=== PATIENT | female | born 1940 | race Asian ===

== ENCOUNTER 2016-06-07 05:32 | Inpatient (IN) | payer MEDICARE, OTHER ==
[~2016-06-07] VITALS: Ht 160 cm; Wt 63.5 kg
[2016-06-07] VITALS (33 sets, daily range): BP systolic 128–222; BP diastolic 65–191; PULSE 52–106; RESP 11–29; Ht 160 cm; Wt 63.5 kg
[2016-06-07] MEDS ORDERED: CEFAZOLIN 1 GM INJ ONE (07:00)
[2016-06-07] MEDS ORDERED: LIDOCAINE 1%/EPI 30 ML INJ ONE (07:03)
[2016-06-07] MEDS ORDERED: ATOR10TA65 PO (07:06)
[2016-06-07] MEDS ORDERED: FENTAnyl 50 MCG/ML VIAL ONE (07:50)
[2016-06-07] MEDS ORDERED: LIDOCAINE 2% (SDV) 5 ML INJ ONE (07:50)
[2016-06-07] MEDS ORDERED: PROPOFOL 20 ML ONE (07:50)
[2016-06-07] MEDS ORDERED: ROCURONIUM 50 MG INJ ONE (07:50)
[2016-06-07] MEDS ORDERED: SUCCINYLCHOLINE CHLORIDE 100 MG/5 ML SYG IV ONE (07:50)
[2016-06-07] MEDS ORDERED: morphine SULFATE/PF (10 MG/10 ML) INJ ONE (07:51)
[2016-06-07] MEDS ORDERED: DEXAMETHASONE 4 MG/ML 1 ML INJ ONE (08:24)
[2016-06-07] MEDS ORDERED: DIPHENHYDRAMINE 50 MG INJ IV PRN (08:30)
[2016-06-07] MEDS ORDERED: MEPERIDINE 25 MG INJ IV PRN (08:30)
[2016-06-07] MEDS ORDERED: HYDROmorphONE (0.2 MG/ML) 10ML SYG IV PRN ×3 (08:30)
[2016-06-07] MEDS ORDERED: METOCLOPRAMIDE 10 MG INJ IV PRN (08:30)
[2016-06-07] MEDS ORDERED: ONDANSETRON 4 MG INJ IV PRN (08:30)
[2016-06-07] MEDS ORDERED: FENTAnyl 50 MCG/ML VIAL IV PRN (08:30)
[2016-06-07] MEDS ORDERED: LACTATED RINGER'S 1,000 ML IV* SCH (09:00)
[2016-06-07] MEDS: CLINDAMYCIN 2% 40 GM VAG CR VAG SCH ×2 (10:00→10:13)
[2016-06-07] MEDS ORDERED: HYDROCODONE/APAP (5/325) TAB PO PRN (11:00)
[2016-06-07] MEDS: LACTATED RINGER'S 1,000 ML IV SCH (18:06)
[2016-06-07] MEDS: ACETAMINOPHEN 325 MG TAB PO PRN ×2 (18:13→21:49)
[2016-06-07] MEDS ORDERED: BENZOCAINE 20% 56 ML SPRAY TOP PRN (19:00)
[2016-06-07] MEDS ORDERED: WITCH HAZEL/GLYCERIN PAD PR PRN (19:00)
[2016-06-07 20:26] LABS: ADD UMIC YES; URINE BILIRUBIN (Dip) NEGATIVE (NEGATIVE); URINE BLOOD (Dip) 1+ (NEGATIVE); URINE COLOR LT. YELLOW (YELLOW); URINE GLUCOSE (Dip) NEGATIVE (NEGATIVE); URINE KETONES (Dip) NEGATIVE (NEGATIVE); URINE LEUKOCYTE ESTERASE (Dip) NEGATIVE (NEGATIVE); URINE NITRITE (Dip) NEGATIVE (NEGATIVE); URINE TOTAL PROTEIN (Dip) NEGATIVE (NEGATIVE); URINE UROBILINOGEN (Dip) 0.2 E.U./dL (0.1-1.0)
[2016-06-07] MEDS ORDERED: ZOLPIDEM 5 MG TAB PO PRN (21:00)
[2016-06-07 21:14] LABS: BACTERIA,URINE MODERATE; SQUAMOUS EPITHELIAL CELL,UR FEW
--- NOTE | 2016-06-07 22:29 | OPR ---
DATE OF OPERATION: 06/07/2016 PREOPERATIVE DIAGNOSIS: Uterine fibroid with uterine prolapse and cystocele and rectocele. POSTOPERATIVE DIAGNOSIS: Uterine fibroid with uterine prolapse and cystocele and rectocele. NAME OF OPERATION: Vaginal hysterectomy, suspension of vaginal vault and anterior and posterior col porrhaphy. ANESTHESIA: Epidural for postoperative pain management and general. ANESTHESIOLOGIST: All Us MD SURGEON: Inderjit Duran MD DRIER AND EVAPORATOR OPERATOR: Ron Reinoso MD ESTIMATED BLOOD LOSS: Approximately 100 mL PROCEDURE: After induction of epidural and general anesthesia, the patient was placed in dorsal lit hotomy position. Abdominal wall and perineal area were prepped and draped in usual aseptic manner. A Lyle catheter was introduced into the bladder under sterile condition, and tube was drained, abdalla d on top of the abdomen and the weighted speculum introduced into the vagina. There was prolapse of uterus of second degree, and the cervix was grasped with Edda forceps, and the vaginal mucosa was incised circular fashion below the cervical vaginal fold, and then circular incision was made and an terior vaginal wall from the cervix, and posterior vaginal wall was from the cer vix at the same time. Then posteriorly, the posterior vaginal wall was undermined, and the posterio r peritoneal reflection was visualized. This was grasped with Ema forceps and opened, and the john Saenz retractor was introduced into the posterior cul-de-sac. Anteriorly, further dissection of the anterior vaginal mucosa, it was noted that cervix is elongated. At this point, uterosacral ligament on the right side was clamped and cut, ligated with #1 chromic catgut, and suture was left long for the next procedure. Same procedure was done on the left side. Uterosacral ligament was cl amped and cut and transfixed with #1 chromic catgut, and suture was left long. Further pursuit of t he anterior reflection, which was difficult due to the elongated cervix, and the cardinal ligament w as clamped and cut, ligated with #1 chromic catgut, and suture was cut on each side, and the uterine vessel was clamped and cut, ligated with #1 chromic catgut on each side. Was able to reach the ant erior reflection, which was opened, and the retractor was introduced. The round ligament and part o f uterine vessel on each side was clamped and cut, ligated with #1 chromic catgut. The fundus was r eached, and the utero-ovarian ligament and fallopian tube proximal portion was clamped and cut and d oubly ligated with #1 chromic catgut, and suture left long for further procedure on each side. With a free needle, the pedicle was brought out to the lateral aspect of vaginal vault, and the suture o n the cardinal ligament was brought out to the right aspect of the vaginal vault, and suture was tie d, and the vaginal vault was suspended on the right side. The same procedure was done on the left s apolonia. No bleeder was noted. The anterior vaginal wall was undermined after the injection of Xylocai ne with epinephrine, and hydrodissection was obtained and the midline incision was made, and the und erlying bladder was separate from the anterior vaginal wall, and #1 Vicryl in interrupted suture was placed on the uterovesical angle, 2 of them, and after that the bladder was reduced by using purses tring suture with 2-0 Vicryl. Good reduction of the cystocele was obtained, and the redundant anter ior vaginal mucosa was resected. This was approximated with 2-0 Vicryl in continuous manner. After this, anterior colporrhaphy done, and the rest of the vaginal vault was closed using 0 Vicryl in co ntinuous manner starting from the right aspect of the vaginal vault, and no bleeder was noted. Afte r the anterior colporrhaphy was done, posteriorly it was noticed that a very loose posterior fourche tte, not noticeable rectocele noted. The inverted triangle incision was made on the perineum, and t he perineal skin was removed, and posterior vaginal mucosa was undermined by using Metzenbaum scisso rs in the middle after the hydrodissection with Xylocaine with epinephrine. After the dissection of the posterior vaginal mucosa, the levator ani muscle was brought closed, approximated with #0 Vicry l in the [id number] suture. The posterior vaginal mucosa was closed with 0 chromic catgut in c ontinuous manner, stub at the vaginal orifice, and suture was left long, and rest of the bulbocavern osus muscle was approximated with 2-0 chromic catgut in continuous manner, and this was continued wi th subcuticular suture using same suture in subcuticular manner to approximate the perineal skin and which was tied up at the orifice. No bleeder was noted. Cleocin 2% cream was used for soaking the vaginal packing which was inserted into the vaginal cavity. The bladder was drained during the arnaldo james with approximately 200 mL of urine, clear. Procedure was completed. Estimated blood loss only approximately 100 mL. The patient withstood procedure, was sent to recovery room in stable conditi on. Dictated By: INDERJIT COLEMAN/OLGA Conf#: [id number] DID#: [id number]
[2016-06-08 00:30] VITALS: BP 131/69; RESP 18
[2016-06-08] MEDS: LACTATED RINGER'S 1,000 ML IV SCH ×3 (05:55→14:17)
[2016-06-08 06:08] VITALS: BP 145/71; PULSE 69; RESP 18
[2016-06-08 06:09] LABS: ADD SCAN DIFF NO
[2016-06-08 06:38] LABS: BASOPHILS % 0.4 % (0.0-2.0); EOSINOPHILS % 0.2 % (0.0-7.0); HEMOGLOBIN 11.8 g/dl (12.0-16.0); LYMPHOCYTES # 1.9 10^3/ul (0.8-2.9); LYMPHOCYTES % 16.4 % (15.0-51.0); MEAN CORPUSCULAR HEMOGLOBIN 30.6 pg (29.0-33.0); MEAN CORPUSCULAR HGB CONC 32.8 g/dl (32.0-37.0); MEAN CORPUSCULAR VOLUME 93.3 fl (82.0-101.0); MEAN PLATELET VOLUME 9.2 fl (7.4-10.4); MONOCYTE # 0.8 10^3/ul (0.3-0.9); MONOCYTES % 7.2 % (0.0-11.0); NEUTROPHIL # 8.5 10^3/ul (1.6-7.5); NEUTROPHILS % 75.4 % (39.0-77.0); PLATELET COUNT 217 10^3/UL (140-415); RED BLOOD COUNT 3.86 10^6/ul (4.20-5.40); RED CELL DISTRIBUTION WIDTH 12.6 % (11.5-14.5); WHITE BLOOD COUNT 11.3 10^3/ul (4.8-10.8)
[2016-06-08 08:30] VITALS: BP 164/76; RESP 18
--- NOTE | 2016-06-08 13:02 | PN ---
Date/Time of Note Date/Time of Note DATE: 06/08/16 TIME: 13:00 Assessment/Plan Lines/Catheters IV Catheter Type (from Nrsg): Peripheral IV Lyle in Place (from Nrsg): Yes Subjective 24 Hr Interval Summary s c/o constipation surgical pain o vss afebrile abdomen soft no significant vaginal bleeding a stable vh and a/p repair p as ordered Exam/Review of Systems Vital Signs Vitals Vital Signs Date Time Temp Pulse Resp B/P Pulse Ox O2 Delivery O2 Flow Rate FiO2 06/08/16 08:30 98.3 77 18 164/76 98 06/08/16 06:08 Room Air 06/07/16 10:30 6.0 Intake and Output 06/07/16 06/07/16 06/08/16 15:00 23:00 07:00 Intake Total 1000 ml 400 ml 1600 ml Output Total 500 ml 2000 ml 1000 ml Balance 500 ml -1600 ml 600 ml Results Result Diagram: 06/08/16 0505 JAMESON PARKS MD Jun 08, 2016 13:02
[2016-06-08] MEDS: IBUPROFEN 600 MG TAB PO SCH ×2 (13:18→17:55)
[2016-06-08] MEDS: POLYETHYLENE GLYCOL 17 GM PACKET PO SCH (13:18)
[2016-06-08] MEDS: ONDANSETRON 4 MG INJ IV PRN (14:17)
[2016-06-08 20:01] VITALS: BP 135/73; RESP 18
[2016-06-08 23:58] VITALS: BP 131/70; RESP 19
[2016-06-09] MEDS: IBUPROFEN 600 MG TAB PO SCH ×5 (00:07→23:15)
[2016-06-09] MEDS: LACTATED RINGER'S 1,000 ML IV SCH ×3 (01:39→20:00)
[2016-06-09 07:44] VITALS: BP 128/72; RESP 19
[2016-06-09] MEDS: POLYETHYLENE GLYCOL 17 GM PACKET PO SCH (08:25)
[2016-06-09 09:51] LABS: ADD UMIC YES; URINE BILIRUBIN (Dip) NEGATIVE (NEGATIVE); URINE BLOOD (Dip) 1+ (NEGATIVE); URINE COLOR LT. YELLOW (YELLOW); URINE GLUCOSE (Dip) NEGATIVE (NEGATIVE); URINE KETONES (Dip) NEGATIVE (NEGATIVE); URINE LEUKOCYTE ESTERASE (Dip) NEGATIVE (NEGATIVE); URINE NITRITE (Dip) NEGATIVE (NEGATIVE); URINE TOTAL PROTEIN (Dip) NEGATIVE (NEGATIVE); URINE UROBILINOGEN (Dip) 0.2 E.U./dL (0.1-1.0)
[2016-06-09 10:14] LABS: BACTERIA,URINE FEW
[2016-06-09] MEDS: ONDANSETRON 4 MG INJ IV PRN (17:56)
[2016-06-09 20:09] VITALS: BP 137/69; RESP 20
[2016-06-10] MEDS: LACTATED RINGER'S 1,000 ML IV SCH (05:39)
[2016-06-10] MEDS: IBUPROFEN 600 MG TAB PO SCH ×2 (05:39→13:02)
[2016-06-10 08:04] VITALS: BP 128/65; RESP 18
[2016-06-10] MEDS: POLYETHYLENE GLYCOL 17 GM PACKET PO SCH (09:06)
--- NOTE | 2016-06-10 10:34 | PD.PPDC ---
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
--- NOTE | 2016-06-10 10:42 | DS ---
Date/Time of Note Date/Time of Note DATE: 06/10/16 TIME: 10:35 Discharge Summary Admission/Discharge Info Admit Date/Time Jun 07, 2016 at 05:32 Discharge Date/Time jun 10 Final Diagnosis uterine fibroids uterine prolapse and cystocele and rectocele Patient Condition: Stable Procedures vaginal hysterectomy and vault suspension ant and post colporrhaphy Hx of Present Illness 76 y.o has been suffering from lower abdominal pressure sensation which has been gradually worsen for the last few yrs andlately something was protruding out from vagina heree for surgical intervention Hospital Course tolerating diet well had b.m urination well vss discharge to residential fascity sine no one is available at home Home Meds Reported Medications Atorvastatin Calcium (Atorvastatin Calcium) 10 Mg Tablet, 10 MG PO QHS, #30 TAB 06/07/16 Follow-up Plan 8weeks at office JAMESON PARKS MD Jun 10, 2016 10:42
--- NOTE | 2016-06-10 10:48 | HP ---
Date/Time of Note Date/Time of Note DATE: 06/10/16 TIME: 10:43 Assessment/Plan VTE Prophylaxis VTE Prophylaxis Intervention: anti-embolic stocking Lines/Catheters IV Catheter Type (from Nrsg): Peripheral IV Urinary Cath still in place: No Assessment/Plan Chief Complaint/Hosp Course tolerating diet well had b.m urination well vss discharge to residential [facility] sine no one is available at home Problems: Assessment/Plan vaginal hysterectomy and vault suspension ant and post colporrhaphy HPI/ROS Admit Date/Time Admit Date/Time Jun 07, 2016 at 05:32 Hx of Present Illness 76 y.o has been suffering from lower abdominal pressure sensation which has been gradually worsen for the last few yrs andlately something was protruding out from vagina heree for surgical intervention ROS Gastrointestinal: pain (lower abdominal pain) Musculoskeletal: back pain PMH/Family/Social Past Medical History Medical History: no pertinent history, high cholesterol Past Surgical History Past Surgical Hx: no surgical history Family History Significant Family History: no pertinent family hx Social History Alcohol Use: none Smoking Status: Never smoker Drug Use: none Exam/Review of Systems Vital Signs Vitals Vital Signs Date Time Temp Pulse Resp B/P Pulse Ox O2 Delivery O2 Flow Rate FiO2 06/10/16 08:04 97.9 72 18 128/65 96 06/08/16 06:08 Room Air 06/07/16 10:30 6.0 Intake and Output 06/09/16 06/09/16 06/10/16 15:00 23:00 07:00 Intake Total 1700 ml 1400 ml Output Total 1000 ml Balance 700 ml 1400 ml Exam Constitutional: alert, oriented, well developed Genitourinary - Female: uterus (prolapsed multiple uterine fibroids) Labs Result Diagram: 06/08/16 0505 Medications Medications Current Medications Lactated Ringer's (Lr) 1,000 ml @ 100 mls/hr Q10H IV Last administered on 06/10 05:39; Admin Dose 100 MLS/HR; Start 06/07/16 at 10:40 Acetaminophen (Tylenol Tab) 650 mg Q4H PRN PO PAIN LEVEL 1-5 Last administered on 06/07/16 21:49; Admin Dose 650 MG; Start 06/07/16 at 11:00 Acetaminophen/ Hydrocodone Bitart ([place] (5/325)) 1 tab Q4H PRN PO PAIN LEVEL 6 -10 Last administered on 06/08/16 09:04; Admin Dose 1 TAB; Start 06/07/16 at 11 :00 Witch Allison/ Glycerin (Tucks Pads) 1 pad PRN PRN SC perineal pain; Start at 19:00 Benzocaine (Dermoplast [place]) 1 spray PRN PRN TOP perineal pain; Start at 19:00 Ibuprofen (Motrin) 600 mg Q6 PO Last administered on 06/10/16 05:39; Admin Dose 600 MG; Start 06/08/16 at 13:00 Polyethylene Glycol (Miralax) 17 gm DAILY PO Last administered on 06/10/16 09: 06; Admin Dose 17 GM; Start 06/08/16 at 13:00 Ondansetron HCl (Zofran Inj) 4 mg Q6H PRN IV NAUSEA AND/OR VOMITING Last administered on 06/09/16 17:56; Admin Dose 4 MG; Start 06/08/16 at 14:00 JAMESON PARKS MD Jun 10, 2016 10:48
== END 2016-06-10 15:00 | DRG 743 ==
LOC: REC 05:32 → EDBD 07:30 → MS1 11:30
PROVIDERS: ADMIT Obstetrics & Gynecology; ATTEND Obstetrics & Gynecology
PROC: 0UTC7ZZ Resection of Cervix, Via Natural or Artificial Opening (ICD-10-PCS; 2016-06-07)
PROC: 0JQC0ZZ Repair Pelvic Region Subcutaneous Tissue and Fascia, Open Approach (ICD-10-PCS; 2016-06-07)
PROC: 0JQC0ZZ Repair Pelvic Region Subcutaneous Tissue and Fascia, Open Approach (ICD-10-PCS; 2016-06-07)
PROC: 0USG0ZZ Reposition Vagina, Open Approach (ICD-10-PCS; 2016-06-07)
PROC: 0UT97ZZ Resection of Uterus, Via Natural or Artificial Opening (ICD-10-PCS; principal; 2016-06-07 07:30)
DX: D25.9 Leiomyoma of uterus, unspecified (principal); N81.10 Cystocele, unspecified; N81.6 Rectocele; N81.4 Uterovaginal prolapse, unspecified
CPT/HCPCS: 81001; 81003; 85025; 86850; 86900; 86901; 88305; J0330; J0690; J1100; J2274; J2405; J3010; J7120